=== PATIENT | female | born 1990 | race Caucasian/White ===

== ENCOUNTER 2022-03-19 10:17 | Emergency (ER) | payer OTHER ==
[2022-03-19 10:39] VITALS: BP 124/74; PULSE 86; RESP 18; TEMP 98; BMI 22.8
[2022-03-19] MEDS ORDERED: KETOROLAC TROMETHAMINE 30 MG/1 ML VIAL IM ONE (10:46)
[2022-03-19] MEDS ORDERED: diazePAM 5 MG TABLET PO ONE (10:46)
[2022-03-19] MEDS ORDERED: KETOROLAC TROMETHAMINE 30 MG/1 ML VIAL ONE (10:49)
[2022-03-19] MEDS ORDERED: diazePAM 5 MG TABLET ONE (10:49)
== END 2022-03-19 11:50 | disposition home or self-care (01) ==
LOC: JERFT 10:17
PROC: 3E0233Z Introduction of Anti-inflammatory into Muscle, Percutaneous Approach (ICD-10-PCS; principal; 2022-03-19)
DX: M43.6 Torticollis (principal)
CPT/HCPCS: 99284-25